=== PATIENT | male | born 1990 | race Two or more races ===

== ENCOUNTER → 2024-09-30 | Outpatient (CLI) | payer BC, SELFPAY ==
--- NOTE | 2024-09-30 10:30 | XR_ITS ---
Examination: Abdomen sonogram, complete Date and time of exam: September 30, 2024 1044 hours INDICATIONS: Upper abdominal pain beginning 4 months ago. Technique: Multiple real-time grayscale transabdominal sonographic images of the abdomen have been obtained. Findings: Normal gallbladder Normal common bile duct 0.4 cm Pancreas obscured by bowel gas Aorta not enlarged Liver 16.4 cm no focal liver lesions Normal hepatopedal portal venous flow Patent IVC Right kidney 11.4 cm cortex 1.6 cm Left kidney 11.5 cm cortex 2.5 cm Spleen 10.0 cm IMPRESSION: Normal gallbladder Mild hepatomegaly
== END | disposition home or self-care (01) ==
PROVIDERS: PCP Physician Assistant Medical; Referring Provider Physician Assistant Medical; Visit Provider Physician Assistant Medical
DX: R10.11 Right upper quadrant pain (principal); R16.0 Hepatomegaly, not elsewhere classified
CPT/HCPCS: 76700